=== PATIENT | female | born 1970 | race Caucasian/White ===

== ENCOUNTER 2017-01-25 10:32 | Outpatient (CLI) | payer OTHER ==
[2017-01-25 18:03] LABS: BASOPHILS # (AUTO) 0.1 10^3/uL (0.0-0.1); BASOPHILS % (AUTO) 0.9 %; EOSINOPHILS # (AUTO) 0.4 10^3/uL (0.0-0.7); EOSINOPHILS % (AUTO) 4.2 %; HCT - HEMATOCRIT 41.6 % (37.0-47.0); HGB - HEMOGLOBIN 14.2 g/dL (12.0-16.0); LYMPHOCYTES # (AUTO) 2.1 10^3/uL (1.5-3.5); LYMPHOCYTES % (AUTO) 21.2 %; MEAN CORPUSCULAR HEMOGLOBIN 28.5 pg (27.0-31.0); MEAN CORPUSCULAR HGB CONC 34.1 g/dL (32.0-36.0); MEAN CORPUSCULAR VOLUME 83.5 fL (81.0-99.0); MEAN PLATELET VOLUME 8.5 fL (7.9-10.8); MONOCYTES # (AUTO) 0.4 10^3/uL (0.0-1.0); NEUTROPHILS # (AUTO) 6.9 10^3/uL (1.5-6.6); NEUTROPHILS % (AUTO) 69.7 %; NUCLEATED RED BLOOD CELLS AUTO 0.1 /100WBC; RED BLOOD COUNT 4.98 10^6/uL (4.20-5.40); RED CELL DISTRIBUTION WIDTH 12.6 % (12.0-15.0); UNCORRECTED WHITE BLOOD COUNT 9.8 x10^3/uL; WHITE BLOOD COUNT 9.8 x10^3/uL (4.8-10.8)
[2017-01-25 18:51] LABS: ALBUMIN/GLOBULIN RATIO 1.2 (1.0-2.2); BILIRUBIN,TOTAL 0.5 mg/dL (0.2-1.0); BUN - BLOOD UREA NITROGEN 10 mg/dL (6-20); CALCIUM 8.9 mg/dL (8.5-10.3); CARBON DIOXIDE - CO2 24 mmol/L (21-32); CHLORIDE 103 mmol/L (101-111); CHOL/HDL RATIO 3.5 (<4.4); CHOLESTEROL 166 mg/dL; CREATININE 0.6 mg/dL (0.4-1.0); GFR - MDRD 108 (>89); GLUCOSE 95 mg/dL (70-100); HDL CHOLESTEROL 48 mg/dL; LDL/HDL RATIO 1.8 (<4.4); MAGNESIUM 2.2 mg/dL (1.7-2.8); POTASSIUM 3.8 mmol/L (3.5-5.0); SODIUM 135 mmol/L (135-145); TOTAL PROTEIN 7.8 g/dL (6.7-8.2); TRIGLYCERIDES 149 mg/dL; VLDL CHOLESTEROL 30 mg/dL
== END 2017-01-25 10:33 | disposition home or self-care (01) ==
LOC: LAB.F 10:32
PROVIDERS: ATTEND Physician Assistant Medical
DX: Z00.00 Encounter for general adult medical examination without abnormal findings (principal); R25.2 Cramp and spasm
CPT/HCPCS: 36415; 80053; 80061; 82306; 83735; 84443; 85025

== ENCOUNTER 2017-02-01 08:58 | Outpatient (CLI) | payer OTHER ==
--- NOTE | 2017-02-01 10:32 | Ultrasound Report ---
PELVIC ULTRASOUND: 02/01/2017 CLINICAL INDICATION: IUD surveillance. TECHNIQUE: Transabdominal pelvic ultrasound performed for global evaluation. Transvaginal pelvic ult rasound performed for detailed evaluation. Real-time scanning performed and static images obtained. FINDINGS: The uterus is anteverted, measuring 10.9 x 7.8 x 6.7 cm. The endometrial echo complex corona sures 8 mm. An IUD is noted in the endometrial canal. There is an anterior intramural leiomyoma, me asuring 7.3 x 6.9 x 6.7 cm, distorting the endometrial anatomy. The right ovary measures 4.7 x 3.5 x 3.4 cm, and appears unremarkable. The left ovary measures 5.3 x 4.6 x 2.9 cm, and contains a 4.6 x 4.4 x 2.8 cm cyst. Normal flow is seen to the surrounding ovarian parenchyma. No free fluid is pres ent. IMPRESSION: 1. IUD IN THE ENDOMETRIAL CANAL. 2. LARGE ANTERIOR INTRAMURAL LEIOMYOMA, DISTORTING THE UTERINE ANATOMY. 3. A 4.6 CM LEFT OVARIAN CYST. FOLLOWUP SCAN IN 2-3 MONTHS IS RECOMMENDED TO DOCUMENT RESOLUTION. JOB #: [id number] EXT JOB #:[id number]
== END 2017-02-01 08:59 | disposition home or self-care (01) ==
LOC: DI 08:58
PROVIDERS: ATTEND Physician Assistant Medical
DX: Z30.431 Encounter for routine checking of intrauterine contraceptive device (principal); D25.1 Intramural leiomyoma of uterus; N83.202 Unspecified ovarian cyst, left side
CPT/HCPCS: 76830; 76856

== ENCOUNTER 2017-06-14 14:47 | Outpatient (CLI) | payer OTHER ==
--- NOTE | 2017-06-15 10:35 | Ultrasound Report ---
PELVIC ULTRASOUND: 06/14/2017 CLINICAL INDICATION: Followup cysts. COMPARISON: 02/01/2017. TECHNIQUE: Transabdominal pelvic ultrasound performed for global evaluation. Transvaginal pelvic ultrasound performed for detailed evaluation. Real-time scanning performed and static images obtained. FINDINGS: The uterus is anteverted, measuring 9.2 x 7.6 x 6.1 cm. An IUD is again seen in the endometrial canal. The endometrium is difficult to visualize secondary to the large anterior leiomyoma, which measures 7.7 x 6.1 x 6.0 cm. The right ovary measures 4.3 x 3.7 x 2.7 cm, and contains a 3.1 x 2.5 x 2.2 cm follicle. The cystic structure in the left adnexa is again seen, measuring 6.4 x 4.2 x 2.8 cm. No definite rim of left ovarian tissue is identified on transvaginal imaging, but the left ovary is not seen separate from this cystic structure, so it is likely ovarian in origin. A small amount of free fluid is present. IMPRESSION: 1. LARGE ANTERIOR INTRAMURAL LEIOMYOMA. 2. IUD IN THE EXPECTED LOCATION. 3. BILATERAL CYSTS, LIKELY OVARIAN IN ORIGIN. TD: 06/15/2017 10:34
== END 2017-06-14 14:48 | disposition home or self-care (01) ==
LOC: DI 14:47
PROVIDERS: ATTEND Obstetrics & Gynecology
DX: D25.1 Intramural leiomyoma of uterus (principal); N94.89 Other specified conditions associated with female genital organs and menstrual cycle; Z97.5 Presence of (intrauterine) contraceptive device
CPT/HCPCS: 76830; 76856

== ENCOUNTER 2017-07-04 12:50 | Outpatient (CLI) | payer OTHER | END 2017-07-04 12:51 | disposition home or self-care (01) | LOC: LAB.F 12:50 | PROVIDERS: ATTEND Obstetrics & Gynecology | DX: N83.202 Unspecified ovarian cyst, left side (principal) | CPT/HCPCS: 36415; 86304 ==

== ENCOUNTER 2018-10-04 09:16 | Outpatient (CLI) | payer OTHER ==
[2018-10-04 17:17] LABS: HGB - HEMOGLOBIN 14.2 g/dL (12.0-16.0); MEAN CORPUSCULAR HEMOGLOBIN 28.4 pg (27.0-31.0); MEAN CORPUSCULAR HGB CONC 32.6 g/dL (32.0-36.0); MEAN CORPUSCULAR VOLUME 87.2 fL (81.0-99.0); MEAN PLATELET VOLUME 10.9 fL (7.9-10.8); RED CELL DISTRIBUTION WIDTH 12.8 % (12.0-15.0); WHITE BLOOD COUNT 8.2 x10^3/uL (4.8-10.8)
[2018-10-04 17:34] LABS: ALBUMIN 4.2 g/dL (3.2-5.5); ALBUMIN/GLOBULIN RATIO 1.2 (1.0-2.2); ALKALINE PHOSPHATASE 70 IU/L (42-121); ALT ALANINE AMINOTRANSFERASE 31 IU/L (10-60); AST ASPARTATE AMINOTRANSFERASE 21 IU/L (10-42); BILIRUBIN,TOTAL 0.9 mg/dL (0.2-1.0); BUN - BLOOD UREA NITROGEN 20 mg/dL (6-20); CALCIUM 9.1 mg/dL (8.5-10.3); CARBON DIOXIDE - CO2 24 mmol/L (21-32); CHLORIDE 107 mmol/L (101-111); CHOL/HDL RATIO 4.3 (<4.4); CHOLESTEROL 200 mg/dL; CREATININE 0.6 mg/dL (0.4-1.0); GFR - MDRD 107 (>89); GLUCOSE 94 mg/dL (70-100); HDL CHOLESTEROL 47 mg/dL; LDL CHOLESTEROL,CALCULATED 136 mg/dL; LDL/HDL RATIO 2.9 (<4.4); SODIUM 140 mmol/L (135-145); TOTAL PROTEIN 7.8 g/dL (6.7-8.2); VLDL CHOLESTEROL 17 mg/dL
[2018-10-04 17:45] LABS: THYROID STIMULATING HORMONE 1.04 uIU/mL (0.34-5.60)
[2018-10-04 17:47] LABS: FREE T4 (FREE THYROXINE) 0.89 ng/dL (0.58-1.64)
[2018-10-04 18:18] LABS: HB2 TOTAL 15.4 g/dL; HEMOGLOBIN A1C 0.53 g/dL; HEMOGLOBIN A1C % 5.3 % (4.6-6.2)
== END 2018-10-04 09:17 | disposition home or self-care (01) ==
LOC: LAB.F 09:16
PROVIDERS: ATTEND Obstetrics & Gynecology
DX: Z01.419 Encounter for gynecological examination (general) (routine) without abnormal findings (principal); D64.9 Anemia, unspecified
CPT/HCPCS: 36415; 80053; 80061; 83036; 83721; 84439; 84443; 85027

== ENCOUNTER 2018-10-07 15:18 | Outpatient (CLI) | payer OTHER ==
--- NOTE | 2018-10-08 08:59 | Mammography Report ---
Reason: ANEMIA,MAMMOGRAPHIC SCREENING FOR BREAST CANCER Procedure Date: 10/07/2018 Accession Number: [id number] / [id number] Procedure: LUCIANO - Screening Mammo w/Ritchie CPT Code: FULL RESULT: EXAM: Screening Mammo w/Ritchie DATE: 10/07/2018 3:46 PM CLINICAL HISTORY: Screening encounter. No reported risk factors. Baseline exam. TECHNIQUE: (B) - Bilateral CC and MLO views were obtained. COMPARISON: None PARENCHYMAL PATTERN: (A) - The breast(s) demonstrate(s) scattered fibroglandular densities. FINDINGS: There are no suspicious masses, calcifications, or areas of distortion. IMPRESSION: Negative examination. BI-RADS category 1. RECOMMENDATION: (ANNUAL) - Recommend routine annual screening mammography. BI-RADS CATEGORY: (1) - Negative. STANDARD QUALIFYING STATEMENTS: 1. This examination was not reviewed with the aid of Computer-Aided Detection (CAD). 2. A negative or benign imaging report should not preclude biopsy if clinically suspicious findings are present. 3. Dense breasts may obscure an underlying neoplasm. 4. This examination was reviewed with the aid of 3D breast imaging (tomosynthesis).
== END 2018-10-07 15:19 | disposition home or self-care (01) ==
LOC: DI 15:18
PROVIDERS: ATTEND Obstetrics & Gynecology
DX: Z12.31 Encounter for screening mammogram for malignant neoplasm of breast (principal)
CPT/HCPCS: 77063; 77067

== ENCOUNTER 2018-10-07 15:19 | Outpatient (CLI) | payer OTHER ==
--- NOTE | 2018-10-08 11:31 | Ultrasound Report ---
Reason: ANEMIA,DISPLACEMENT OF INTRAUTERINE CONTRACEPTIVE Procedure Date: 10/07/2018 Accession Number: [id number] / [id number] Procedure: US - Pelvic w/Transvaginal CPT Code: FULL RESULT: EXAM: PELVIC ULTRASOUND EXAM DATE: 10/07/2018 04:11 PM. CLINICAL HISTORY: Anemia, displacement of intrauterine contraceptive. COMPARISON: PELVIC W/TRANSVAGINAL 06/14/2017 2:55 PM. TECHNIQUE: Realtime transabdominal pelvic scan performed to identify the uterus and adnexa and as an overview of other pelvic structures, followed by transvaginal scan to provide greater detail of the uterus and adnexa, with static image documentation. FINDINGS: Uterus: 9.7 x 7.8 x 8.0 cm, volume 316 cc. Anteverted position. The uterus is overall enlarged. Masses: Redemonstration of a 6.3 x 6.0 x 6.4 cm heterogeneous mass within the anterior wall of the uterine body which prominently displaces the endometrium posteriorly, submucosal component. Endometrium: The endometrium is difficult to adequately measure but does not appear thickened, up to 6 mm as seen. Portions of the intrauterine device are again seen posteriorly within the uterus near the displaced endometrium within 0.6 cm of the posterior serosal surface of the uterus. Overall orientation with respect to the endometrium is not established. Cervix: Unremarkable. Right Ovary: 3.2 x 2.0 x 1.3 cm, volume 4.3 cc. Normal echotexture and blood flow. Left Ovary: 5.2 x 3.8 x 4.1 cm, volume 42 cc. There is a septated cystic mass with blood flow with thin septations which measures 3.4 x 3.0 x 3 cm. Free Fluid: None. Other: None. IMPRESSION: Redemonstration of a 6.4 cm uterine mass with prominent endometrial component and distortion of the endometrium which can no longer be clearly characterized. Left adnexal cystic mass with thick septations with vascularity, up to 3.4 cm. Visualized portions of the intrauterine device are seen close to the posterior wall of the uterine body. CONNERA The call report notification system was initiated by Dr. Jose Alberto Garcia at 11:21 AM on 10/08/2018. The above call report findings were discussed with Judith Jimenez RN to Dr. Simons by Dr. Jose Alberto Garcia at 11:30 AM on 10/08/2018.
== END 2018-10-07 15:20 | disposition home or self-care (01) ==
LOC: DI 15:19
PROVIDERS: ATTEND Obstetrics & Gynecology
DX: N85.9 Noninflammatory disorder of uterus, unspecified (principal); N83.202 Unspecified ovarian cyst, left side; T83.32XA Displacement of intrauterine contraceptive device, initial encounter
CPT/HCPCS: 76830; 76856

== ENCOUNTER 2019-03-07 12:31 | Outpatient (CLI) | payer OTHER | END 2019-03-07 12:32 | disposition home or self-care (01) | LOC: LAB.S 12:31 | PROVIDERS: ATTEND Obstetrics & Gynecology | DX: R19.09 Other intra-abdominal and pelvic swelling, mass and lump (principal) | CPT/HCPCS: 36415; 81599; 82378; 86304; 86305 ==

== ENCOUNTER 2019-05-08 11:28 | Day surgery (SDC) | payer OTHER ==
--- NOTE | 2019-05-08 09:45 | HISTORY & PHYSICAL EXAMINATION ---
HPI - History of Present Illness HPI Comment/Other: HPI: Patient is here today for a pre op for a Fibroid, ovarian cyst and IUD removal....................................................................Cami Oden MA April 28, 2019 9:01 AM Last seen in clinic in September 2018 for removal of IUD. Unable to remove IUD with interference from fibroid. Obtained pelvic us which showed an andenxal mass with thin septations. Tumor markers were negative. No change in health hx since time of prior exam Last us is about 6 months old. Continues to have monthly menses, althoug less regular. Not yet sexaully active with new partner but considering and desires prevention. Given planned laparscopic procedure, interested in salpingectomy. Does not have state insurance; no wiating period for sterilization. No changes in health hx since time of prior exam. Current Allergies: No Known Allergies Current Meds: IBUPROFEN 200 MG ORAL TABLET (IBUPROFEN) Take two to three tablets by mouth with food every 6 hours as needed for pain; Route: ORAL ACETAMINOPHEN 500 MG ORAL TABLET (ACETAMINOPHEN) Take one or two tablets by mouth three times daily for pain or fever, maximum 3,000 mg daily; Route: ORAL Allergies: No Known Allergies Medications: IBUPROFEN 200 MG ORAL TABLET (IBUPROFEN) Take two to three tablets by mouth with food every 6 hours as needed for pain; Route: ORAL ACETAMINOPHEN 500 MG ORAL TABLET (ACETAMINOPHEN) Take one or two tablets by mouth three times daily for pain or fever, maximum 3,000 mg daily; Route: ORAL Problems: IUD removal (ICD-V25.12) (URE00-O88.432) Preop exam (ICD-V72.84) (MJG30-P41.818) Adnexal mass, left (ICD-789.39) (PRD21-O39.09) Mammographic screening for breast cancer (ICD-V76.12) (YPA61-K80.31) Analytics Consultant annual exam (ICD-V72.3) (VKI55-M89.419) Displacement of intrauterine contraceptive device, initial encounter (ICD- 996.32) (TMV54-A82.32xA) Anxiety (ICD-300.00) (YDQ90-Y60.9) Anemia (ICD-285.9) (WWM92-P44.9) Abnormal Pap Smear (ICD-795.00) (CTU17-O39.619) Other ovarian cyst, unspecified side (ICD-620.2) (UWP37-P85.299) Intramural uterine fibroid (ICD-218.1) (TRL52-K65.1) Vaginal bleeding, abnormal (ICD-626.9) (DRH66-V01.9) Anxiety disorder, situational, mild (ICD-309.24) (HIZ37-C92.8) 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) (OYQ36-I16.3) IUD surveillance (ICD-V25.42) (BFJ82-G46.431) Vitamin D deficiency (ICD-268.9) (LOR81-D43.9) Leg cramps (ICD-729.82) (AGE24-H11.2) Screening for anemia (ICD-V78.1) (FKC44-X87.0) Screening for dyslipidemia (ICD-V77.91) (PAF50-A61.89) Screening for hypothyroidism (ICD-V77.0) (ATZ80-W48.29) Screening mammogram NEC (ICD-V76.12) (PPJ82-D44.31) Physical examination (ICD-V70.0) (YOQ01-J48.00) Preventive health care (ICD-V70.0) (RBO00-U02.00) Common cold (ICD-460) (MSR80-Q32) Allergic rhinitis (ICD-477.9) (HLV06-V28.9) Risk Factors: Smoked Tobacco Use: Former smoker Cigarettes: Yes -- 1/2 pack(s) per day, Pack-Years: 175 Year Started: 1984 Years Smoked: 13 Year Quit: 1998 Years Since Last Quit: 22 Smokeless Tobacco Use: Never Passive Smoke Exposure: no HIV High Risk Behavior: no Caffeine Use: 2 drinks per day Exercise: no Seatbelt Use: 100 % Sun Exposure: occasionally Alcohol Use: yes Type: beer Drinks per day: <1 Drug Use: yes Vital Signs: Patient Profile: 49 Years Old Female Height: 65 inches Weight: 177.8 pounds BMI: 29.69 BP sittin / 80 Cuff size: regular Vitals Entered By: Vanesa Oden MA (April 28, 2019 9:01 AM) Meds Reviewed: Done Allergies Reviewed: Done No known allergies: T Past Medical History: seasonal allergy H/O Depression/ Anxiety no treatment now Abnormal Pap Smear Anemia Anxiety Fibroids Headache/Migraine Ovarian Cysts Past Surgical History: None REMOTE ADVISOR Review of Systems ROS Comments: As per HPI, otherwise remaining systems are negative. Questionnaire Would you like to become in the next year? No Are you currently using contraception? Yes Current contraception: Mirena IUD Optional Notes: Desires sterilization Physical Constitutional: alert, no acute distress, well hydrated. Skin: normal turgor, normal color. Head: atraumatic, normocephalic. Cardiovascular: RRR. Respiratory: no respiratory distress, clear to auscultation. Abdomen: nondistended. Neurologic: normal. Psych: affect and mood appropriate, normal interaction, good eye contact. Vulva: From prior exam: Vagina normal, rugated, physiologic discharge, no lesions, no masses Cervix normal, no motion tenderness, no lesions IUD strings are not visible Uterus fibroids Enlarged with palpable anterior fibroids. Distorts path of endometrial canal Adnexa normal, no masses, mobile, nontender Impression & Recommendations: Problem # 1: Preop exam (ICD-V72.84) (AER05-L17.818) Orders: PRE OP -[id number] ([id number]) Reviewed surgical procedure for hysteroscopy with removal of IUD, laparoscopic cystectomy with possible oophorectomy and bilateral salpingectomy Reviewed risks, benefits, alternatives Risks include, but are not limited to, bleeding, infection, damage to nearby tissue and organs, including uterine perforation Clear that she is not interested in future fertility and desires sterilization. Written informed consent obtained for hsyteroscopy DC, with hsyteroscopic rem oval of IUD, laparoscopic ovarian cystectomy with possible oophorectomy, and bilateral salpingectomy Will obtain pelvic us prior to surgery date Negative tumor markers Proceed to surgery on 05/08/2019 PMH/PSH - Past Medical History Cardiovascular: positive: Murmur Respiratory: positive: None Endocrine/Autoimmune: positive: None GI: positive: None : positive: None HEENT: positive: None Psych: positive: None Musculoskeletal: positive: None Derm: positive: None MRSA Hx?: No Meds/Allgy - Home Medications Home Medications: Ambulatory Orders Medication Instructions Recorded Confirmed Ibuprofen [Motrin] 600 mg PO Q6H PRN 04/22/19 04/22/19 - Allergies Allergies/Adverse Reactions: Allergies Allergy/AdvReac Type Severity Reaction Status Date / Time No Known Drug Allergies Allergy Verified 04/22/19 14:45
[~2019-05-08 11:28] MED LIST: LIDOCAINE 1%-EPI 1:100000 20 ML MDV ONE
[2019-05-08] MEDS ORDERED: GLYCOPYRROLATE 1 MG/5 ML VIAL IVP ONE (11:29)
[2019-05-08] MEDS ORDERED: HYDROmorphone 1 MG/ML SYRINGE IM ONE (11:29)
[2019-05-08] MEDS ORDERED: fentaNYL 100 MCG/2 ML VIAL IVP ONE (11:29)
[2019-05-08] MEDS ORDERED: PROPOFOL 200 MG/20 ML VIAL IVP ONE (11:29)
[2019-05-08] MEDS ORDERED: DEXAMETHASONE 4 MG/ML VIAL IVP ONE (11:29)
[2019-05-08] MEDS ORDERED: MIDAZOLAM 2 MG/2 ML VIAL IVP ONE (11:29)
[2019-05-08] MEDS ORDERED: ROCURONIUM 50 MG/5 ML VIAL IVP ONE (11:29)
[2019-05-08] MEDS ORDERED: ePHEDrine 50 MG/ML VIAL IVP ONE (11:29)
[2019-05-08] MEDS ORDERED: NEOSTIGMINE 1 MG/1 ML 10 ML MDV IVP ONE (11:29)
[2019-05-08] MEDS ORDERED: ONDANSETRON 4 MG/2 ML VIAL IVP ONE (11:29)
[2019-05-08] MEDS ORDERED: KETOROLAC 30 MG/ML VIAL IVP ONE (11:29)
[2019-05-08] MEDS ORDERED: CEFAZOLIN SODIUM IN 0.9 % NACL 2 GM/100 ML BAG IV ONE (11:38)
[2019-05-08] MEDS ORDERED: ACETAMINOPHEN 1,000 MG/100 ML 100 ML IV ONE (11:39)
[2019-05-08] MEDS ORDERED: GABAPENTIN 400 MG CAPSULE ONE (11:39)
[2019-05-08] MEDS ORDERED: CELECOXIB 100 MG CAPSULE PO ONE (11:39)
[2019-05-08 11:58] LABS: HCG UR QUAL NEGATIVE
[2019-05-08 12:44] LABS: BASOPHILS % (AUTO) 0.6 %; EOSINOPHILS # (AUTO) 0.3 10^3/uL (0.0-0.7); EOSINOPHILS % (AUTO) 3.8 %; HGB - HEMOGLOBIN 13.3 g/dL (12.0-16.0); LYMPHOCYTES # (AUTO) 2.2 10^3/uL (1.5-3.5); LYMPHOCYTES % (AUTO) 33.6 %; MEAN CORPUSCULAR HEMOGLOBIN 29.4 pg (27.0-31.0); MEAN CORPUSCULAR HGB CONC 34.2 g/dL (32.0-36.0); MEAN CORPUSCULAR VOLUME 86.1 fL (81.0-99.0); MEAN PLATELET VOLUME 10.4 fL (7.9-10.8); MONOCYTES # (AUTO) 0.4 10^3/uL (0.0-1.0); MONOCYTES % (AUTO) 6.3 %; NEUTROPHILS # (AUTO) 3.7 10^3/uL (1.5-6.6); NEUTROPHILS % (AUTO) 55.4 %; PLT - PLATELET COUNT 285 10^3/uL (130-450); RED BLOOD COUNT 4.52 10^6/uL (4.20-5.40); RED CELL DISTRIBUTION WIDTH 12.4 % (12.0-15.0); WHITE BLOOD COUNT 6.7 x10^3/uL (4.8-10.8)
--- NOTE | 2019-05-08 12:53 | ANESTHESIA ---
Pre-Anesthesia VS, & Labs - Diagnosis adnexal mass left ovarian cyst, uterine fibroid, displaced IUD - Procedure laparoscopic ovarian cystectomy,fibroid removal, IUD Vital Signs: Temp Pulse Resp BP Pulse Ox 37.2 C 72 18 134/95 H 100 05/08/19 11:48 05/08/19 11:48 05/08/19 11:48 05/08/19 11:48 05/08/19 11:48 Height 5 ft 5 in Weight (kg) 79 kg - NPO >8 hours - Is Patient ?: No - Lab Results Current Lab Results: Laboratory Tests 05/08/19 12:30: WBC 6.7, RBC 4.52, Hgb 13.3, Hct 38.9, MCV 86.1, MCH 29.4, MCHC 34.2, RDW 12.4, Plt Count 285, MPV 10.4, Neut # (Auto) 3.7, Lymph # (Auto) 2.2, Sebastian # (Auto) 0.4, Eos # (Auto) 0.3, Baso # (Auto) 0.0, Absolute Nucleated RBC 0.00, Nucleated RBC % 0.0 05/08/19 12:19: POC Whole Bld Glucose 95 Fish Bones: 05/08/19 12:30 Home Medications and Allergies Home Medications: Ambulatory Orders Ibuprofen [Motrin] 600 mg PO Q6H PRN 04/22/19 Ibuprofen [Motrin] 600 mg PO Q6H PRN 04/22/19 Allergies/Adverse Reactions: Allergies Allergy/AdvReac Type Severity Reaction Status Date / Time No Known Drug Allergies Allergy Verified 04/22/19 14:45 Anes History & Medical History - Anesthetic History Anesthesia Complications: reports: No previous complications - Medical History Cardiovascular: reports: Murmur Pulmonary: reports: None Gastrointestinal: reports: None Urinary: reports: None Musculoskeletal: reports: None Endocrine/Autoimmune: reports: None Skin: reports: None Exam General: Alert Mouth Opening: Greater than 4 Fingerbreadths Neck Mobility: Normal Mallampati classification: II Thyromental Distance: greater than 6 cm Respiratory: Lungs clear Cardiovascular: Regular rate, Normal S1, Normal S2, Other (2/6 murmur) Plan Anesthesia Type: General Consent for Procedure(s) Verified and Reviewed: Yes Code Status: Attempt Resuscitation ASA classification: 2-Mild systemic disease Is this case an emergency?: No
[2019-05-08] MEDS ORDERED: LACTATED RINGERS 1,000 ML IV ONE ×2 (13:36→15:50)
[2019-05-08] MEDS ORDERED: LIDOCAINE 1%-EPI 1:100000 20 ML MDV SUBQ ONE ×2 (14:55)
[2019-05-08] MEDS ORDERED: LIDOCAINE 1%-EPI 1:100000 20 ML MDV ONE (15:35)
[2019-05-08] MEDS ORDERED: oxyCODONE 5 MG TABLET PO PRN (16:31)
[2019-05-08] MEDS ORDERED: KETOROLAC 30 MG/ML VIAL IVP PRN (16:32)
--- NOTE | 2019-05-08 16:36 | OPERATIVE REPORT ---
Operative Report - General Procedure Date: 05/08/19 Planned Procedure: Laparoscopic bilateral salpingectomy, possible ovarian cystectomy vs oophorectomy, and hysteroscopic retrieval of retained IUD Pre-Op Diagnosis: Desires sterilization, retained IUD, adnexal mass Procedure Performed: Laparascopic bilateral salpingectomy, left sided oophorectomy, lysis of adhesions, and hysteroscopic retrieval of retained IUD Post Op Diagnosis: Left sided ovarian mass, retained IUD, left sided adhesive disease - Procedure Note Primary Surgeon: Elizabeth Simons MD Anesthesia Provider: Sandra Bright CRNA Anesthesia Technique: General ET tube Pathology: Bilateral tubal fallopian tubes, left ovary with cyst and cystic fluid Estimated Blood Loss (mL): 5 Urine Output (mL): 150 Indications: Persistent complex adnexal mass with negative tumor markers, retained IUD with failed attempts at removal in clinic, undesired fertility. Findings: Enlarged fibroid uterus with approximately 8 cm anterior fibroid distorting the architecture of the uterus, pulling and stretching the right round ligament and tube across the midline. Normal appearing right ovary. Left ovary with multiple clear fluid filled cysts incorporating the bulk of the ovary, approximaltey 5-6 cm. Left sided ureter visualized prior to and following the oophorectomy with vermiculation noted on both occasions. Upper left abdomen with omental ad hesions on the lateral side of the abdominal cavity. Otherwise normal pelvis and abdomen. Hysteroscopic portion of the procedure revealed a uterine cavity with Mirena IUD intact with partial embedding of the shaft. Anterior endometrial cavity convex with large fibroid. Complications: None - Other Other Information/Narrative: Risks benefits and alternatives of the procedure were reviewed. Consent was again confirmed. Patient was brought to the operating room and underwent general anesthesia. She was placed in dorsal lithotomy position with legs resting in yellowfin stirrups. SCDs were in place and activated. Antibiotics were not indicated. She was prepped and draped in the usual sterile fashion. Surgical timeout was performed. Bimanual exam was performed. Sterile speculum was placed and Humi uterine manipulator was placed. The base of the umbilicus was anesthetized with intradermal injection of 0.25% Marcaine. A 5 mm skin incision was made with a scalpel. A 5 mm blunt trocar was inserted under direct visualization using Visiport. Once the port was confirmed to be placed intraperitoneally, the abdomen was insufflated to 15 mmHg with CO2 gas Exploration of the abdomen and pelvis was confirmed that no injury was sustained with placement of the trocar. Two additional 5 mm ports were placed in the right and left lower quadrants, taking care to avoid the epigastric arteries, while under direct visualization via laparoscopic guidance. The pelvis and abdomen were explored with the laparoscope, with findings as noted. The right Fallopian tube was grasped and elevated and resected from the underlying mesosalpinx with the LigaSure bipolar sealing and cutting device. The Fallopian tube was sealed at transected at its insertion point on the cornua. It was then removed from the surgical field and sent to pathology as a specimen. The procedure was repeat on the left Fallopian tube. Good hemostasis was note bilaterally. The left pelvic sidewal was examined so the the position of the left ureter was noted. The left ovary and cyst was elevated and a window was created in the meso-ovarium medial to the infundibulopelvic ligament. The Ligasure was inserted through the window to grasp the IP in its entirety. It was sealed and ligated. The utero-ovarian ligament was then sealed and resected, allowing release of the left ovary and cyst. The left lateral port was removed and the incision was extended to accommodate an 11 mm port. The 11 mm port was inserted. An Endocatch bag was inserted through the port, and the ovary and cyst were collected in the bag. It was pulled trough the port site and a spinal needed was inserted to drain the cyst fluid. The ovary was partially morcellated within the collection bag until the bulk was of was removed through the port site while in the collection bag. at no point was the cyst fluid or ovarian tissue spilled within the abdomen or pelvic cavity. All cyst fluid was sent with the ovarian tissue to pathology for review. The abdomen and pelvis were explored and all surgical margins were hemostatic. The left ureter was examined and peristalsis/vermiculation was noted. A Bry Alexandra device was inserted into the 11 mm port site and the port site was closed with a figure of 8 suture using 0-Vicryl. The left laternal adhesions were taken down in a combination of blunt dissection and sealing and ligation with the Ligasure device. Care was taken to avoid any nearby bowel. Good hemostasis was noted. The abdomen was partially desufflated. Surgical margins were observed under decreased pressure and good hemostasis was again confirmed. All instruments were removed from the abdomen. Skin was closed with interrupted subcuticular stitches using 4-0 Monocryl. Dermabond was applied over the suture sites. Attention was then turned to the hysteroscopic portion of the procedure. The Humi manipulator was removed. Speculum was placed in the vagina and the cervix was visualized. Single-tooth tenaculum was placed at the anterior cervical lip. Paracervical block was administered using a total of 20 cc of 1% lidocaine with epinephrine was injected at the 4:00 and 8:00 positions lateral to the portio of the cervix. The cervical os was serially dilated with Hegar dilators to accommodate the caliber of the diagnostic hysteroscope. Uterus sounded to 8 cm. An IUD hook was inserted in an attempt to remove the IUD manually. This attempt was not successful. The hysteroscope was inserted and findings were noted as above. The hysteroscopic grasper was inserted through the operative port. The IUD was removed, intact, under direct visualization. It was inspected and found the be intact. Intraoperative photos were taken prior to disposal. Uterine cavity was smooth at close of the procedure other than for the large anterior fibroid. All instruments were removed from the uterus. Tenaculum was removed. Tenaculum sites were noted to be hemostatic. All instruments were removed from the vagina. Procedure was well-tolerated without complication. Fluid deficit: 600 cc NS. Thisis likely and overestimate as the suction was not functioning and the fluid in the collection drape was not quantified. The final sponge needle and instrument counts were correct at completion of the procedure patient was awakened taken to the postanesthesia care unit in stable condition.
[2019-05-08] MEDS ORDERED: oxyCODONE 5 MG TABLET ONE (16:50)
[2019-05-08 16:59] VITALS: BP 134/80
== END 2019-05-08 11:29 | disposition home or self-care (01) ==
LOC: SDS 11:28
PROVIDERS: ATTEND Obstetrics & Gynecology
PROC: 0UT14ZZ Resection of Left Ovary, Percutaneous Endoscopic Approach (ICD-10-PCS; principal; 2019-05-08 13:00)
PROC: 0UT74ZZ Resection of Bilateral Fallopian Tubes, Percutaneous Endoscopic Approach (ICD-10-PCS; 2019-05-08 13:00)
PROC: 0UPD8HZ Removal of Contraceptive Device from Uterus and Cervix, Via Natural or Artificial Opening Endoscopic (ICD-10-PCS; 2019-05-08 13:00)
DX: D25.1 Intramural leiomyoma of uterus (principal); D27.1 Benign neoplasm of left ovary; K66.0 Peritoneal adhesions (postprocedural) (postinfection); T83.32XA Displacement of intrauterine contraceptive device, initial encounter; Z30.2 Encounter for sterilization; Z87.891 Personal history of nicotine dependence
CPT/HCPCS: 58562; 58661; 81025; 85025; A9270; J0131; J0690; J1170; J7120

== ENCOUNTER 2019-08-27 17:24 | Outpatient (CLI) | payer OTHER | END 2019-08-27 17:25 | disposition home or self-care (01) | LOC: COV 17:24 | PROVIDERS: ATTEND Family Medicine | DX: R50.9 Fever, unspecified (principal); M79.10 Myalgia, unspecified site; J02.9 Acute pharyngitis, unspecified | CPT/HCPCS: 81599 ==

== ENCOUNTER 2020-11-11 08:00 | Outpatient (CLI) | payer BC, OTHER | END 2020-11-11 23:59 | disposition home or self-care (01) | LOC: LAB.S 08:00 | PROVIDERS: ATTEND Emergency Medicine | DX: L72.3 Sebaceous cyst (principal) | CPT/HCPCS: 87070; 87205 ==